=== PATIENT | female | born 1945 | race Caucasian/White ===

== ENCOUNTER → 2020-12-21 07:02 | Outpatient (CLI) | payer MEDICARE, SELFPAY ==
[2020-12-21 11:12] LABS: Influenza Control Positive
[2020-12-21 20:42] LABS: SARS-CoV-2 RNA PCR Negative
== END ==
PROVIDERS: PCP Family Medicine; Visit Provider Family Medicine
DX: Z20.822 Contact with and (suspected) exposure to COVID-19 (principal); R05 Cough
CPT/HCPCS: 87804; C9803; U0003; U0005

== ENCOUNTER → 2021-02-04 00:39 | Outpatient (CLI) | payer MEDICARE, MEDICAID, SELFPAY ==
[2021-02-04 18:53] LABS: SARS-CoV-2 RNA PCR Negative
== END ==
PROVIDERS: PCP Family Medicine; Visit Provider Internal Medicine Gastroenterology
DX: Z01.812 Encounter for preprocedural laboratory examination (principal); Z20.822 Contact with and (suspected) exposure to COVID-19
CPT/HCPCS: C9803; U0003; U0005

== ENCOUNTER 2021-02-07 01:12 | Day surgery (SDC) | payer MEDICARE, MEDICAID, SELFPAY ==
[2021-01-30 13:57] VITALS: BMI 20.9
[2021-02-07] MEDS: LACTATED RINGERS 1,000 ML 150 ML IV CONT (08:07)
[2021-02-07 08:08] VITALS: BP 122/63; PULSE 66; RESP 18; TEMP 36.4; O2SAT 95; BMI 21.1
--- NOTE | 2021-02-07 08:38 | WPDANESEPPF ---
Anes - Initial Pre Proc Eval Procedure: Operation Date: 02/07/21 09:00 Proposed Procedures p Colonoscopy - Emmett Sunshine MD Date/Time: 02/07/21 08:38 Surgeon: Emmett Sunshine MD Pre Op Diagnosis: abn. CAT, Abdom.Pain Patient Data Age: 75 Gender: F Height: 5 ft 6 in Weight: 59.3 kg Last Vital Signs Temp 97.6 F 02/07/21 08:08 Pulse 66 02/07/21 08:08 Resp 18 02/07/21 08:08 BP 122/63 02/07/21 08:08 Pulse Ox 95 02/07/21 08:08 Allergies Allergy/AdvReac Type Severity Reaction Status Date / Time Iodinated Contrast Media Allergy Unknown rash Verified 02/07/21 07:46 Penicillins Allergy Unknown unknown Verified 02/07/21 07:46 red dye Allergy Unknown unknown Verified 02/07/21 07:46 Home Medications Medication Instructions Recorded Confirmed Type triamcinolone acetonide 0.1 % 1 applic TOPICAL TID #80 gm 12/07/19 02/07/21 Rx topical cream tramadol 50 mg tablet 50 mg PO Q12H PRN #60 tablet 08/02/20 01/30/21 Rx albuterol sulfate 90 mcg/actuation 2 puff INHALATION Q4H PRN #8.5 g 01/02/21 01/30/21 Rx aerosol inhaler cholecalciferol (vitamin D3) 1,250 1,250 mcg PO WEEKLY #12 cap 01/02/21 01/30/21 Rx mcg (50,000 unit) capsule Patient hx anesthesia problems: none Family hx anesthesia problems: none PMFSH Past Medical History Medical History (Updated 12/28/20 @ 10:28 by Alexandra Shelton DO) Abnormal MRI Back pain Chronic obstructive pulmonary disease with (acute) exacerbation Compression fracture of vertebrae Postmenopausal Psoriasis Vitamin D deficiency Surgical History Surgical History H/O total hysterectomy with bilateral salpingo-oophorectomy (BSO) History of bladder suspension procedure History of cholecystectomy Family History Family History Mother Family history of malignant neoplasm of bone Patient's mother is Social History Social History Smoking packs per day: 0.5 Smoking cigarettes per day: 10.0 Years smoked: 40 Smoking pack-years: 20.00 Smoking status: Current every day smoker Tobacco type: cigarettes Second hand tobacco smoke exposure: Yes Alcohol intake: former Substance use: never Substance use type: does not use Living arrangements: alone Gender identity (if verbalized by the patient): Female Spiritual care concerns: No Agree to blood products: Yes Anes - Eval Final PreProcedure Day of Procedure 02/07/21 08:38 Patient weight: normal Lungs: clear to auscultation Airway: Mallampati scale class II Neurological: alert and oriented Last oral intake: >/= 8 hours ASA classification: III Anesthetic plan: proceed Anesthesia type and monitoring: general GIVS and standard monitoring Informed Consent: The patient's anesthetic plan and its attendant risks and benefits were discussed with the patient/family/POA. Questions were solicited and answers provided to the satisfaction of the patient/family/POA.
--- NOTE | 2021-02-07 08:49 | PM.HPGS ---
History of Present Illness History of Present Illness Consent: Risks, benefits, and alternatives have been discussed and questions answered. Patient agrees to proceed with procedure. Chief complaint: abn. CAT, Abdom.Pain Narrative: Janie Sung is a 75 year old female with a change in bowel habits. She has become very constipated lately and this is accompanied by pain in her pelvis that can last for hours. CT scan showed diverticulosis without diverticulitis Review of Systems Review of Systems: All systems reviewed & are unremarkable except as noted in HPI and below PMFSH Past Medical History Medical History Abnormal MRI Back pain Chronic obstructive pulmonary disease with (acute) exacerbation Compression fracture of vertebrae Postmenopausal Psoriasis Vitamin D deficiency Surgical History Surgical History H/O total hysterectomy with bilateral salpingo-oophorectomy (BSO) History of bladder suspension procedure History of cholecystectomy Family History Family History Mother Family history of malignant neoplasm of bone Patient's mother is Social History Social History Smoking packs per day: 0.5 Smoking cigarettes per day: 10.0 Years smoked: 40 Smoking pack-years: 20.00 Smoking status: Current every day smoker Tobacco type: cigarettes Second hand tobacco smoke exposure: Yes Alcohol intake: former Substance use: never Substance use type: does not use Living arrangements: alone Gender identity (if verbalized by the patient): Female Spiritual care concerns: No Agree to blood products: Yes Meds Home Medications and Allergies Home Medications Medication Instructions Recorded Confirmed Type triamcinolone acetonide 0.1 % 1 applic TOPICAL TID #80 gm 12/07/19 02/07/21 Rx topical cream tramadol 50 mg tablet 50 mg PO Q12H PRN #60 tablet 08/02/20 01/30/21 Rx albuterol sulfate 90 mcg/actuation 2 puff INHALATION Q4H PRN #8.5 g 01/02/21 01/30/21 Rx aerosol inhaler cholecalciferol (vitamin D3) 1,250 1,250 mcg PO WEEKLY #12 cap 01/02/21 01/30/21 Rx mcg (50,000 unit) capsule Allergies Allergy/AdvReac Type Severity Reaction Status Date / Time Iodinated Contrast Media Allergy Unknown rash Verified 02/07/21 07:46 Penicillins Allergy Unknown unknown Verified 02/07/21 07:46 red dye Allergy Unknown unknown Verified 02/07/21 07:46 Vital Signs Vital Signs - 24 hr 02/07/21 08:08 Temperature 36.4 C Pulse Rate 66 Respiratory Rate 18 Blood Pressure 122/63 Pulse Oximetry 95 Exam Resp: Auscultation: clear to auscultation bilaterally Cardio: Rate: regular rate Rhythm: regular rhythm GI: GI Palp: Yes Soft to palpation and No Tenderness to palpation present (GI) Assessment and Plan Assessment and plan (1) Change in bowel habits: Code(s): R19.4 - Change in bowel habit Status: Acute Assessment and Plan: Colonoscopy with possible biopsy or polypectomy or cautery or injection of substances.
[2021-02-07 09:26] VITALS: BP 99/47; PULSE 61; RESP 18; O2SAT 95
[2021-02-07 09:36] VITALS: BP 101/55; PULSE 58; RESP 20; O2SAT 94
[2021-02-07 09:46] VITALS: BP 116/68; PULSE 63; RESP 20; O2SAT 95
== END 2021-02-07 10:21 | disposition home or self-care (01) ==
PROVIDERS: PCP Family Medicine; Visit Provider Internal Medicine Gastroenterology
PROC: 0DJD8ZZ Inspection of Lower Intestinal Tract, Via Natural or Artificial Opening Endoscopic (ICD-10-PCS; CPT 45378; principal; 2021-02-07 09:00)
DX: R19.4 Change in bowel habit (principal); K57.30 Diverticulosis of large intestine without perforation or abscess without bleeding; J44.9 Chronic obstructive pulmonary disease, unspecified; E55.9 Vitamin D deficiency, unspecified; L40.9 Psoriasis, unspecified; Z79.51 Long term (current) use of inhaled steroids; F17.210 Nicotine dependence, cigarettes, uncomplicated
CPT/HCPCS: 45378; C9803; J2001; J2704; J7120; U0003; U0005